=== PATIENT | male | born 1980 | race Caucasian/White ===

== ENCOUNTER 2024-11-10 14:32 | Emergency (ER) | payer MEDICAID, SELFPAY ==
[2024-11-10 14:40] VITALS: BP 125/83; PULSE 86; RESP 16; TEMP 36.6; O2SAT 98; BMI 27.1
[2024-11-10] MEDS: HYDROcodone-acetaminophen 7.5-325 mg Tablet 1 TAB PO (15:25)
--- NOTE | 2024-11-10 15:27 | USR_ITS ---
PROCEDURE INFORMATION: Exam: US Duplex Left Upper Extremity Arteries Exam date and time: 11/10/2024 3:35 PM Age: 44 years old Clinical indication: Pain; Hand; Left; Prior surgery; Surgery date: 6+ months; Surgery type: Elbow and index finger; Additional info: HX of raynauds but feels different, cyanotic/pain in hand TECHNIQUE: Imaging protocol: Left Real-time ultrasound scan of the arteries of the left upper extremity with 2-D bianchi scale, color Doppler flow and spectral waveform analysis. COMPARISON: No relevant prior studies available. FINDINGS: Left subclavian artery: No occlusion or significant stenosis. Normal waveform. Left axillary artery: No occlusion or significant stenosis. Normal waveform. Left brachial artery: No occlusion or significant stenosis. Normal waveform. Left radial artery: No occlusion or significant stenosis. Normal waveform. Left ulnar artery: No occlusion or significant stenosis. Normal waveform. Soft tissues: Unremarkable. US/[place] [id number] IMPRESSION: No acute findings.
[2024-11-10 15:28] VITALS: BP 137/75; PULSE 89; O2SAT 98
[2024-11-10 15:30] VITALS: BP 145/73; PULSE 81; O2SAT 97
--- NOTE | 2024-11-10 16:06 | ED_ITS ---
HPI - Extremity Problem General: Chief complaint: Extremity Problem,Nontraumatic Stated complaint: lt hand purple and painful Time Seen by Provider: 11/10/24 14:50 Source: patient Mode of arrival: ambulatory Limitations: no limitations History of Present Illness: Patient is a 44-year-old male who presents the emergency department complaining of left hand pain and cyanosis. He reports a history of Raynaud's disease which she has been dealing with for years, he takes nifedipine as needed for this. He states that a couple of weeks ago he had a very minor injury to his left finger, this is all he can think of in terms of recent trauma. He notes that normally the tips of his 2nd through 5th digits will turn white, he notes that his pointer finger and thumb have been purple and significantly more painful this time around. He was supposed to see a specialist in [facility], however missed this appointment and now is scheduled to see someone in [facility]. Rating the pain 10/10, and he cannot bend the pointer finger. He also notes pain radiating proximally up the entire arm. He has tried rewarming techniques as well as his nifedipine, no relief. No other symp toms reported at this time. He is noting coolness to his left pointer finger. MD Complaint: extremity pain and cold extremity Onset (ago): day(s) Pain Consistency: constant Location: left and upper extremity Severity scale (1-10): 10 Quality: sharp and constant Radiation: proximal Exacerbating factors: range of motion Associated symptoms: Deny chest pain, fever(s) or rash Context: other (History of Raynaud's disease) Related Data Home Medications Medication Instructions Recorded Confirmed omeprazole 20 mg capsule,delayed 20 mg PO BID 12/03/22 10/16/24 release brimonidine 0.2 %-timolol 0.5 % 1 drp ophthalmic (eye) BID 11/10/24 11/10/24 eye drops (Combigan) Previous Rx's Medication Instructions Recorded aspirin 325 mg capsule 325 mg PO DAILY #20 caps 11/10/24 clopidogrel 75 mg tablet (Plavix) 75 mg PO DAILY #30 tabs 11/10/24 hydrocodone 5 mg-acetaminophen 325 1 tab PO Q8H PRN pain #14 tabs 11/10/24 mg tablet nifedipine 20 mg capsule 20 mg PO ONCE #30 caps 11/10/24 polyethylene glycol 3350 17 17 g PO DAILY #510 grams 11/10/24 gram/dose oral powder (Miralax) Allergies Allergy/AdvReac Type Severity Reaction Status Date / Time No Known Allergies Allergy Verified 11/10/24 14:46 Review of Systems General: Reports: 10 or more systems reviewed and unremarkable except in HPI and below Const: Denies: fever(s), chills or fatigue Eyes: Denies: change in vision ENMT: Denies: throat pain, ear or mastoid pain or nasal discharge Card: Denies: chest pain, palpitations, swelling of feet/ankles or lightheadedness Resp: Denies: dyspnea, productive cough or wheezing GI: Denies: abdominal pain, nausea, vomiting, diarrhea or constipation : Denies: flank pain, difficulty urinating, dysuria or urinary frequency Musc: Reports: extremity pain; Denies: neck pain, back pain or joint pain Skin/Breast: Denies: rash Neuro: Reports: numbness in extremities and other (Coolness and cyanosis to left hand); Denies: headache(s) or weakness in extremities PFSH ED PFSH: Social History Smoking and tobacco/nicotine status: current every day tobacco/nicotine user Physical Exam Const: COMMON NORMALS: patient oriented x3, no limitations, healthy appearing, alert and well nourished OTHER: Uncomfortable HENMT: COMMON NORMALS: normocephalic and atraumatic HEAD & SCALP: normocephalic and atraumatic Neck/C-Spine: COMMON NORMALS: full ROM, supple and no meningeal signs Resp: COMMON NORMALS: normal respiratory effort, No use of accessory muscles and clear to auscultation bilaterally AUSCULTATION: clear to auscultation bilaterally Cardio: COMMON NORMALS: regular rate and regular rhythm RATE: regular rate RHYTHM: regular rhythm Extremity: COMMON NORMALS: full ROM, capillary refill normal, no joint enlargement and no clubbing, cyanosis or edema NARRATIVE EXTREMITY EXAM: Significant tenderness to palpation to the left palm, left thumb, and left pointer finger. No palpable deformities or signs of trauma. Range of motion limited secondary to pain, specifically with flexion of the fingers. Radial pulse palpable. Brachial pulse palpable. Neuro: COMMON NORMALS: patient oriented x3, moves all extremities, no focal motor deficits and no sensory deficits noted SENSORIUM/ORIENTATION: Yes alert MENINGEAL SIGNS: Yes no meningeal signs Skin: NARRATIVE SKIN EXAM: Cyanosis to left pointer finger and base of left thumb. Area is cool to the touch Course Vital Signs: Vital signs: Vital Signs Temperature 97.9 F 11/10/24 14:40 Pulse Rate 81 11/10/24 15:30 Respiratory Rate 16 11/10/24 14:40 Blood Pressure 145/73 11/10/24 15:30 Pulse Oximetry 97 11/10/24 15:30 Oxygen Delivery Me thod Room Air 11/10/24 15:30 MDM - Extremity (Nontraumatic) Medical Decision Making Patient has history of Raynaud's, has had severe worsening of pain over the past couple of weeks. Remembering techniques were attempted at home, his fingers were cyanotic hereinafter rewarming technique his color did appear to get better though he was still complaining of severe pain. Arterial ultrasound obtained and was negative for any thrombus. His pulses were palpable on exam, it did clinically appear to be a Raynaud's disease, however concerns were endorsed with the new mottling/blotching of skin extending into the palm. I spoke with Dr. Oneil here in the ED who evaluated the patient as well. We spoke with Dr. Buckley and Dr. Ramesh at [place] who had recommended starting the patient on Plavix and aspirin and that the patient could see Dr. Santos, vascular surgeon, early next week for evaluation. Discussed plan with patient, who is encouraged to avoid any cold environment and to keep his fingers warm. He is already on nifedipine and we will treat pain with [place]. He is comfortable with this plan, and return precautions were given. He is provided information on follow-up for early next week which she will go to as we discussed. Lab Data Radiology Impressions Duplex Scan Upper Extremity Artery 11/10/24 15:27 IMPRESSION: No acute findings. All radiology interpretation(s) finalized by discharge Discharge Plan Discharge Patient Disposition: Home Clinical Impression: Raynaud's disease Condition: Stable Prescriptions: New hydrocodone-acetaminophen 5-325 mg tablet 1 tab PO Q8H PRN (Reason: pain) Qty: 14 0RF Rx Instructions: Take 1/2 to 1 tab every 8 hours as needed for pain polyethylene glycol 3350 [Miralax] 17 gram/dose powder 17 g PO DAILY Qty: 510 0RF Rx Instructions: Take 1 scoop daily while taking pain medications. clopidogrel [Plavix] 75 mg tablet 75 mg PO DAILY Qty: 30 1RF nifedipine 20 mg capsule 20 mg PO ONCE Qty: 30 0RF aspirin 325 mg capsule 325 mg PO DAILY Qty: 20 0RF No Action brimonidine-timolol [Combigan] 0.2-0.5 % drops 1 drp ophthalmic (eye) BID omeprazole 20 mg capsule,delayed release(DR/EC) 20 mg PO BID Discharge Orders: Discharge ED (Routine); Ordered 11/10/24 Ordered By: Leno Call Patient Instructions: Opioid Safety, Pain Management Activity Restrictions/Additional Instructions: Please call Dr. Santos's office at [facility] for an appointment. I had spoke with Dr. Buckley and Dr. Ramesh, one of his parters and he recommends you see Dr. Vance in clinic next November. The phone number for his office is [phone]. Clinic is located at [facility] in [place] Thank you for choosing [facility] for your healthcare needs today. Please realize this is an emergency room and that we are providing you with a medical screening exam and this may not be complete and all inclusive of all the testing and or work up that you may need to determine your ailment or severity of your illness. You have been screened and evaluated and felt safe for discharge. Health con ditions do change or evolve sometimes and as such it is important that you follow up with your Primary Doctor to be re checked, 3-5 days is a general good time frame for follow up. 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
[2024-11-10 16:14] VITALS: BP 143/73; PULSE 76; O2SAT 96
== END 2024-11-10 16:15 | disposition home or self-care (01) ==
PROVIDERS: Emergency Provider Physician Assistant
DX: I73.00 Raynaud's syndrome without gangrene (principal); Z72.0 Tobacco use
CPT/HCPCS: 93931; 99284